=== PATIENT | female | born 1945 | race Caucasian/White ===

== ENCOUNTER 2018-10-26 15:11 | Emergency (ER) | payer MEDICARE, OTHER ==
[~2018-10-26] VITALS: Ht 154.9 cm; Wt 74.8 kg
--- NOTE | 2018-10-26 15:36 | NUR ---
Dr. George at the bedside for MSE.
[2018-10-26] MEDS ORDERED: OXYCODONE/APAP 5-325 MG TABLET ONE (15:44)
[2018-10-26] MEDS ORDERED: OXYCODONE/APAP 5-325 MG TABLET PO ONE (15:45)
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
--- NOTE | 2018-10-26 16:15 | NUR ---
Pt returned from CT with radiologist.
[2018-10-26] MEDS ORDERED: KETOROLAC TROMETHAMINE 60 MG INJ IM ONE (16:44)
[2018-10-26] MEDS ORDERED: KETOROLAC TROMETHAMINE 30 MG INJ IM ONE (16:45)
--- NOTE | 2018-10-26 16:54 | NUR ---
Patient discharged to home in stable conditon. Written and verbal after care instructions given. Patient verbalizes understanding of instructions.
== END 2018-10-26 16:54 | disposition home or self-care (01) ==
LOC: ER 15:11
DX: S16.1XXA Strain of muscle, fascia and tendon at neck level, initial encounter (principal); M25.552 Pain in left hip; M25.562 Pain in left knee; R51 Headache; V03.99XA Pedestrian with other conveyance injured in collision with car, pick-up truck or van, unspecified whether traffic or nontraffic accident, initial encounter; Y93.89 Activity, other specified; Y92.89 Other specified places as the place of occurrence of the external cause; Y99.8 Other external cause status
CPT/HCPCS: 70450; 71101; 72125; 72170; 73564; 73590; 96372; 99284; J1885; A4663